=== PATIENT | female | born 1965 | race Caucasian/White ===

== ENCOUNTER 2017-03-07 20:18 | Emergency (ER) | payer MEDICAID ==
[~2017-03-07] VITALS: Ht 132.1 cm; Wt 69.1 kg
[~2017-03-07 20:18] MED LIST: HYDR-3965; NAPR-58 PO; OMEP20TA86 PO
[2017-03-07] MEDS ORDERED: ACETAMINOPHEN 325 MG TABLET PO ONE (22:45)
[2017-03-07 22:48] VITALS: BP 138/68
== END 2017-03-07 23:03 | disposition home or self-care (01) ==
LOC: EMS 20:21
DX: M17.11 Unilateral primary osteoarthritis, right knee (principal); M25.461 Effusion, right knee; F17.210 Nicotine dependence, cigarettes, uncomplicated; Z88.6 Allergy status to analgesic agent
CPT/HCPCS: 99284

== ENCOUNTER 2018-07-14 11:44 | Emergency (ER) | payer SELFPAY ==
[~2018-07-14] VITALS: Ht 149.9 cm; Wt 68.2 kg
[2018-07-14] MEDS ORDERED: KETOROLAC TROMETHAMINE 60 MG/2 ML VIAL IM ONE (13:45)
[2018-07-14 15:39] VITALS: BP 138/79
== END 2018-07-14 15:41 | disposition home or self-care (01) ==
LOC: EMS 11:45
DX: S20.02XA Contusion of left breast, initial encounter (principal); G43.909 Migraine, unspecified, not intractable, without status migrainosus; Z88.8 Allergy status to other drugs, medicaments and biological substances; F17.210 Nicotine dependence, cigarettes, uncomplicated; W07.XXXA Fall from chair, initial encounter; Y93.89 Activity, other specified; Y92.89 Other specified places as the place of occurrence of the external cause; Y99.8 Other external cause status
CPT/HCPCS: 71101; 96372; 99283; J1885